=== PATIENT | female | born 1975 | race Caucasian/White ===

== ENCOUNTER 2018-01-21 18:46 | Emergency (ER) | payer OTHER ==
[~2018-01-21] VITALS: Ht 144.8 cm; Wt 72.4 kg
[~2018-01-21 18:46] MED LIST: ADVAIR 100/501 DISK IH; HYDROCHLOROTHIA25 MG PO; INDERAL10 MG PO; MOTRIN600 MG PO; PERCOCET 5/31 TABLET PO; PRILOSEC10 MG PO; PROTONIX20 MG PO; TAMIFLU75 MG PO; TOPAMAX25 MG PO; TOPROL XL200 MG; TOPROL XL50 MG; VENTOLIN17 GM; ZOFRAN ODT4 MG PO; clonazepam; neurontin; omeprazole; trintellix
[2018-01-21 20:10] LABS: HEMATOCRIT 38.1 % (36.0-46.0); HEMOGLOBIN 12.1 G/DL (11.9-15.5); MCH 26.7 PG (29.0-34.0); MCHC 31.8 G/DL (30.0-36.0); MCV 83.9 FL (83-99); PLATELET COUNT 271 K/uL (156-360); RBC DIS.WIDTH-CV 14.1 % (11.8-14.6); RBC DIS.WIDTH-SD 43.6 % (39-53); RED BLOOD COUNT 4.54 M/uL (3.80-5.20); WHITE BLOOD COUNT 7.8 K/uL (4.1-10.2)
[2018-01-21 20:23] LABS: CHLORIDE 108 mEq/L (99-109); SODIUM 141 mEq/L (136-147)
[2018-01-21 20:24] LABS: GLUCOSE 91 mg/dL (70-99)
[2018-01-21 20:28] LABS: CREATININE 1.1 mg/dL (0.6-1.3); GFR ESTIMATE (CALCULATED) 57 mL/min/
[2018-01-21 20:29] LABS: UREA NITROGEN (BUN) 15 mg/dL (9-23)
[2018-01-21 20:31] LABS: TROP-I INTERPRETATION NEGATIVE; TROPONIN-I < 0.01 ng/mL (0.0-0.30)
[2018-01-21 23:01] LABS: TROP-I INTERPRETATION NEGATIVE; TROPONIN-I < 0.01 ng/mL (0.0-0.30)
[2018-01-21 23:55] VITALS: BP 122/89
== END 2018-01-21 23:59 | disposition home or self-care (01) ==
LOC: EME 18:46
PROVIDERS: Physician Assistant
DX: G43.909 Migraine, unspecified, not intractable, without status migrainosus (principal); I10 Essential (primary) hypertension; R00.1 Bradycardia, unspecified; R94.31 Abnormal electrocardiogram [ECG] [EKG]; K21.9 Gastro-esophageal reflux disease without esophagitis; J45.909 Unspecified asthma, uncomplicated; Z79.51 Long term (current) use of inhaled steroids; Z90.49 Acquired absence of other specified parts of digestive tract; Z86.69 Personal history of other diseases of the nervous system and sense organs; Z88.8 Allergy status to other drugs, medicaments and biological substances
CPT/HCPCS: 71046; 80048; 84484; 85027; 93005; 99281; 99284; J1200; J1885; J2765; J7040